=== PATIENT | female | born 1955 | race Caucasian/White ===

== ENCOUNTER 2021-08-22 18:46 | Inpatient (IN) | payer OTHER ==
[~2021-08-22] VITALS: Ht 160 cm; Wt 82.6 kg
[2021-08-22 18:49] VITALS: BP 113/58
[2021-08-22 19:51] LABS: URINE BILIRUBIN 2+ (Negative); URINE BLOOD 1+ (Negative); URINE CLARITY CLEAR; URINE COLOR YELLOW; URINE GLUCOSE-RANDOM* 1+ (Negative); URINE KETONES TRACE (Negative); URINE PROTEIN (DIPSTICK) 2+ (Negative); URINE UROBILINOGEN >= 8.0 E.U./dl (0.2-1.0)
[2021-08-22 20:01] LABS: URINE LEUKOCYTES-REFLEX 2+ (Negative); URINE NITRITE-REFLEX POSITIVE (Negative)
[2021-08-22 20:02] LABS: ABSOLUTE NEUTROPHILS 7.1 thou/uL (1.4-8.2); BASOPHILS 1.1 % (0.0-2.0); EOSINOPHILS 1.3 % (0.0-3.0); HEMATOCRIT 33.2 % (37.0-47.0); LYMPHOCYTES 20.3 % (24.0-44.0); MCH 30.1 pg (26.0-34.0); MCHC 33.3 g/dL (28.0-37.0); MCV 90.5 fL (80.0-100.0); MONOCYTES 4.8 % (1.0-8.0); PLATELET COUNT 262 thou/uL (150-400); POLYS 72.5 % (36.0-66.0); RBC 3.66 mil/uL (4.20-5.00); RDW 16.8 % (10.5-14.5); WBC 9.8 thou/uL (4.0-11.0)
[2021-08-22 20:04] LABS: SQUAMOUS 0-3 Few /LPF (0-3)
[2021-08-22 20:05] LABS: CALCIUM OXALATE 4-10 Moderate /LPF (None Seen); CASTS None Seen /LPF (None Seen); URINE WBC-REFLEX 6-15 Few /HPF (0-5)
[2021-08-22 20:06] LABS: URINE RBC 1-2 Rare /HPF (NONE SEEN)
[2021-08-22 20:11] LABS: CALCIUM 9.2 mg/dL (8.5-10.1); POTASSIUM 3.8 mmol/L (3.5-5.1)
--- NOTE | 2021-08-22 20:30 | NUR ---
O2 MONITOR NOT WORKING PROPERLY IN PT ROOM. PT SWITCHED TO PORTABLE 02 MONITOR A MEANS OF MONITORING PT O2. PT IS 02 SAT AT THIS TIME ON 4L NC IS 98% WHILE SITTING UP.
[2021-08-22] MEDS ORDERED: PREGABALIN75 MG PO (22:55)
[2021-08-22] MEDS ORDERED: ROXICODONE5 MG PO (22:55)
[2021-08-22] MEDS ORDERED: LORAZEPAM 1 MG T1 MG PO (22:56)
[2021-08-22] MEDS ORDERED: NITROFURANTOIN100 MG PO (22:56)
[2021-08-22] MEDS ORDERED: FLEXERIL PO (22:58)
[2021-08-22] MEDS ORDERED: AMPHETAMINE SAL30 MG PO (22:59)
[2021-08-22] MEDS ORDERED: TOPAMAX 25 MG T25 M1 PO (23:00)
[2021-08-23 01:42] LABS: HEMATOCRIT 27.8 % (37.0-47.0); HEMOGLOBIN 9.3 gm/dL (12.0-15.0); MCH 30.5 pg (26.0-34.0); MCHC 33.5 g/dL (28.0-37.0); MCV 90.9 fL (80.0-100.0); RBC 3.06 mil/uL (4.20-5.00)
[2021-08-23] MEDS ORDERED: PREDNISONE 10 M10 MG PO (02:44)
[2021-08-23] MEDS ORDERED: LEVO-T100 MCG PO (02:45)
[2021-08-23] MEDS ORDERED: IMITREX100 MG PO (02:45)
[2021-08-23 02:54] LABS: CALCIUM 8.3 mg/dL (8.5-10.1)
[2021-08-23] MEDS ORDERED: TOPAMAX 25 MG T25 M1 PO (06:57)
[2021-08-23 16:54] VITALS: BP 127/57
[2021-08-23 20:30] VITALS: BP 124/62
--- NOTE | 2021-08-24 04:59 | NUR ---
ASSUMED CARE AT 1900, PT LAYING COMFORTABLY IN BED NO ADVERSE REACTION NOTED FROM THE CURRENT TX PLAN, IV INITIATED ON THE RIGHT FOREARM, TOLARATED PROCEURE WELL, TOILETED NEEDED, WILL CONTINUE TO MONITOR.
[2021-08-24] MEDS ORDERED: CEFDINIR300 MG PO (11:16)
[2021-08-24 11:57] VITALS: BP 124/62
--- NOTE | 2021-08-24 12:22 | NUR ---
WAS NOTIFIED BY NURSING THAT PT IS DISCHARGING TODAY AND NEEDS HH FAXED REFERRAL TO [facility] SPOKE WITH JENNIFER IN INTAKE SHE RECEIVED REFERRAL AND CAN ACCEPT. FAXED DC ORDERS/SUMMARY RECEIVED CONFIRMATION NOTIFIED NURSING UNIT THAT PT HAS HH SET UP AND THAT THEY WILL CALL AND ARRANGE VISITS.
[2021-08-24 12:37] LABS: CALCIUM 8.6 mg/dL (8.5-10.1); CREATININE 0.8 mg/dL (0.6-1.0); POTASSIUM 3.3 mmol/L (3.5-5.1)
--- NOTE | 2021-08-24 16:00 | NUR ---
0700 this nurse assumed responsibility of cares. pt is in stable condition, normal rise and fall of chest seen, no respiratory distress noted at this time. pt is free from pain, 0/10 pain. denies SOA and chest pain. no complaints from patient at this time. will reassess with assessment.
--- NOTE | 2021-08-24 16:35 | NUR ---
1630 lines removed, no tele. all paperwork signed and dated. discharge papers reviewed with patient and , ana luisa. all questions were answered. no further questions expressed. belongings given to patient and . room checked, all belongings returned to patient and , nothing left behind. tech assisted patient to exit in wheelchair and oxygen. patient left with in pov.
== END 2021-08-24 17:50 | disposition home health service (06) | DRG 690 ==
LOC: ER 18:46 → EROBS 21:38 → 4W 08-23 17:19
PROVIDERS: Internal Medicine; Nurse Practitioner; ADMIT Hospitalist; ATTEND Hospitalist
DX: N39.0 Urinary tract infection, site not specified (principal); D83.9 Common variable immunodeficiency, unspecified; J96.11 Chronic respiratory failure with hypoxia; M80.08XA Age-related osteoporosis with current pathological fracture, vertebra(e), initial encounter for fracture; J45.909 Unspecified asthma, uncomplicated; I25.10 Atherosclerotic heart disease of native coronary artery without angina pectoris; K21.9 Gastro-esophageal reflux disease without esophagitis; F32.9 Major depressive disorder, single episode, unspecified; E03.9 Hypothyroidism, unspecified; Z96.649 Presence of unspecified artificial hip joint; Z20.822 Contact with and (suspected) exposure to COVID-19; J44.9 Chronic obstructive pulmonary disease, unspecified; E87.6 Hypokalemia; D64.89 Other specified anemias; G89.4 Chronic pain syndrome; Z88.2 Allergy status to sulfonamides; Z88.8 Allergy status to other drugs, medicaments and biological substances; Z88.6 Allergy status to analgesic agent; Z88.1 Allergy status to other antibiotic agents; Z91.041 Radiographic dye allergy status; Z91.040 Latex allergy status; I25.2 Old myocardial infarction; Z90.710 Acquired absence of both cervix and uterus; Z87.442 Personal history of urinary calculi; Z90.49 Acquired absence of other specified parts of digestive tract; Z87.891 Personal history of nicotine dependence
CPT/HCPCS: 10040